=== PATIENT | male | born 1985 | race Caucasian/White ===

== ENCOUNTER 2017-09-21 18:06 | Emergency (ER) | payer BC ==
[~2017-09-21] VITALS: Ht 170.2 cm; Wt 111.4 kg
[2017-09-21] MEDS ORDERED: KETOROLAC TROMETHAMINE 60 MG/2 ML VIAL IM ONE (18:45)
[2017-09-21 19:53] VITALS: BP 130/85
== END 2017-09-21 19:57 | disposition home or self-care (01) ==
LOC: EMS 18:09
DX: S93.402A Sprain of unspecified ligament of left ankle, initial encounter (principal); X50.1XXA Overexertion from prolonged static or awkward postures, initial encounter; Y93.89 Activity, other specified; Y92.89 Other specified places as the place of occurrence of the external cause; Y99.8 Other external cause status
CPT/HCPCS: 73610; 96372; 99284; J1885